=== PATIENT | female | born 1960 | race Caucasian/White ===

== ENCOUNTER 2016-11-11 16:08 | Emergency (ER) | payer OTHER ==
[~2016-11-11] VITALS: Ht 175.3 cm; Wt 85.0 kg
[~2016-11-11 16:08] MED LIST: ALBU18HF INH; BDS.4IN INH; HYDR25TA4 PO; LISI-571 PO; OMEP-113 PO
[2016-11-11 16:22] VITALS: BP 147/90; PULSE 90; RESP 18; O2SAT 96
[2016-11-11] MEDS ORDERED: 0.9% Sodium Chloride 1,000 ML IV ONE ×4 (16:36→20:10)
[2016-11-11] MEDS ORDERED: Ondansetron 2 mg/mL 2 mL Inj IVPUSH PRN (16:40)
[2016-11-11] MEDS ORDERED: Pantoprazole 4 mg/mL 10 mL Inj IVPUSH ONE (16:40)
[2016-11-11 16:42] LABS: BASOPHILS % (AUTO) 0.6 % (0-3); EOSINOPHILS % (AUTO) 5.1 % (0-5); MONOCYTES % (AUTO) 12.6 % (4-12); Mean Corpuscular Hemoglobin 34.5 pg (27.0-35.0); Mean Corpuscular Volume 96.4 fL (81-100); NEUTROPHILS % (AUTO) 59.6 % (40-74); Platelet Count 232 bil/L (150-400)
[2016-11-11] MEDS: HYDROmorphone 1 mg/mL Inj IVPUSH PRN ×2 (16:55→17:24)
[2016-11-11 17:02] LABS: Magnesium 1.9 mg/dL (1.6-2.6)
--- NOTE | 2016-11-11 18:07 | ED.REPORT ---
HPI-Abd Pain F 40 and Over Date of Service Nov 11, 2016 ED Provider: Greg Riley DO Pt is a 56 year old female with a history of HTN and asthma who presents to the ED complaining of constant and worsening LUQ abdominal pain onset this morning. She denies nausea, vomiting, and diarrhea. The pain is exacerbated by standing up straight, laughing, deep breathing, and bending over. Nursing Notes Stated Complaint: ABDOMINAL PAIN Chief Complaint: Female Abdominal Pain Nursing Notes Reviewed: Yes Allergies: Coded Allergies: Tetracycline (Verified Allergy, Severe, 06/19/10) Sulfa (Sulfonamide Antibiotics) (Verified Allergy, Unknown, RASH, ITCHING , SOB, 02/18/14) morphine (Verified Adverse Reaction, Severe, nausea, vomitting, 02/18/14) sulfamethoxazole (Verified Adverse Reaction, Intermediate, Welts, rash, ) trimethoprim (Verified Adverse Reaction, Intermediate, Welts, rash, ) Scheduled Budesonide (Pulmicort Flexhaler) 60 Puff/Inh Inhaler 2 PUFF INH HS Hydrochlorothiazide (Hydrochlorothiazide) 25 Mg Tablet 25 MG PO DAILY Lisinopril (Lisinopril) 5 Mg Tablet 5 MG PO DAILY Omeprazole Magnesium (Omeprazole) 20 Mg Capsule.dr 20 MG PO DAILY Scheduled PRN Albuterol Sulfate (Ventolin HFA Inhaler) 200 Puff/18 Gm Inhaler 1 PUFF INH Q4 PRN PRN For Wheezing General Time Seen by MD: 18:06 Chief Complaint Abdominal pain Hx Obtained From: Patient Arrived By: Walk-in Sudden in Onset?: No Onset Occurred: 5 - 8 hours ago Symptom Duration: Since onset Location: : LUQ Quality: Painful Severity: Current: Moderate Severity: Maximum: Moderate Recent Healthcare: No recent doctor visit, No recent hospitalization Similar Sx Previous: No Past Medical History Past Medical History Reports: Asthma, Cancer, Hypertension, Denies: Congestive heart failure, Diabetes mellitus Past Surgical History Right shoulder surgery Bilateral eye surgery for cancer Smoking History Former Smoker Social History Alcohol Use: "Social" Drug Use: Denies drug use Other Social History: Good social support Ambulatory Status Independent Review of Systems GI: Reports: Abdominal pain, Denies: Diarrhea, Nausea, Vomiting Complete sys rev & neg: except as marked. Physical Exam Vital Signs Vital Signs (First) Date Time Temp Pulse Resp B/P Pulse Ox O2 Delivery O2 Flow Rate FiO2 11/11/16 16:22 37.1 90 18 147/90 96 Room Air Initial VS: Reviewed Head / Eyes: Atraumatic, Normocephalic Neck: Supple, Full range of motion Extremities: Vascular intact, Neuro intact Skin: Warm, Dry, No cyanosis Neurologic: Alert, Oriented, Nonfocal Psychiatric: Mood/affect normal, Behavior normal General/Constitutional: Awake, Alert, Cooperative Respiratory / Chest: Atraumatic, Breath sounds NL, Breath sounds = bilat Cardiovascular: Heart rate NL, Regular rhythm, Heart sounds NL Abdomen: Atraumatic Bowel Sounds / Distention: Positive: Bowel sounds hyperactive Abdomen is distended. Diffusely tender abdomen, greatest on the left side. Back: Atraumatic, Full range of motion Interpretation & Diagnostics Lab Results Interpretation Result Diagram: 11/11/16 1630 11/11/16 1630 Test 11/11/16 16:30 11/11/16 17:02 11/11/16 18:40 White Blood Count 9.1th/mm3 (3.8-10.1) Red Blood Count 4.49mil/mm3 (3.90-5.20) Hemoglobin 15.5g/dL (12.0-15.6) Hematocrit 43.3% (35.0-46.0) Mean Corpuscular Volume 96.4fL (81-100) Mean Corpuscular Hemoglobin 34.5pg (27.0-35.0) Mean Corpuscular Hemoglobin Concent 35.8% (32.0-37.0) Red Cell Distribution Width 12.8% (12.3-15.4) Platelet Count 232bil/L (150-400) Neutrophils (%) (Auto) 59.6% (40-74) Lymphocytes (%) (Auto) 21.9% (14-46) Monocytes (%) (Auto) 12.6% (4-12) Eosinophils (%) (Auto) 5.1% (0-5) Basophils (%) (Auto) 0.6% (0-3) Sodium Level 138mEq/L (134-144) Potassium Level 3.8mEq/L (3.5-5.2) Chloride Level 97mEq/L (97-108) Carbon Dioxide Level 23mmol/L (18-29) Blood Urea Nitrogen 11mg/dL (6-24) Creatinine 0.46mg/dL (0.57-1.00) Estimat Glomerular Filtration Rate 202mL/min (>59) Glucose Level 113mg/dL (60-99) Calcium Level 10.2mg/dL (8.5-10.1) Magnesium Level 1.9mg/dL (1.6-2.6) Total Bilirubin 0.4mg/dL (0.0-1.2) Aspartate Amino Transf (AST/SGOT) 32U/L (0-50) Alanine Aminotransferase (ALT/SGPT) 25U/L (0-32) Alkaline Phosphatase 88U/L (25-150) Troponin T < 0.010ug/L (0.0-0.011) Total Protein 7.9g/dL (6.4-8.4) Albumin 4.3g/dL (3.4-5.0) Lipase 23U/L (13-60) Lactic Acid Level 0.8mmol/L (0.4-2.0) Urine Color Yellow (YELLOW) Urine Appearance Hazy (CLEAR,HAZY) Urine pH 6.0 (5.0-8.0) Urine Specific [place] 1.005 (1.003-1.035) Urine Protein Negativemg/dL (NEG,TRACE) Urine Glucose (UA) Negativemg/dL (NEGATIVE) Urine Ketones Negativemg/dL (NEGATIVE) Urine Occult Blood Trace (NEGATIVE) Urine Nitrite Negative (NEGATIVE) Urine Bilirubin Negative (NEGATIVE) Urine Urobilinogen Normalmg/dL (NORMAL) Urine Leukocyte Esterase Small (NEGATIVE) Urine RBC 0-2/hpf (0-2) Urine WBC 11-50/hpf (0-5) Urine Epithelial Cells Moderate/hpf (NONE-MOD) Urine Crystals None seen (NONE SEEN) Urine Bacteria Few/hpf (NONE-FEW) Urine Hyaline Casts None/lpf (NONE) Urine Granular Casts None seen (NONE SEEN) Urine Waxy Casts None seen (NONE SEEN) Urine Red Blood Cell Casts None seen (NONE SEEN) Urine White Blood Cell Casts None seen (NONE SEEN) Urine Mucus None seen (None Seen) Urine Trichomonas None seen (NONE SEEN) Urine Yeast None (NONE SEEN) Urinalysis Comment None Urine Culture Reflexed Indicated ECG Interpretation ECG Interpretation: Sinus rhythm with a rate of 79. Time: 18:36 Interpreted by: ED physician CT Abd / Pelvis Interpretation IMPRESSION: 1. No acute intra-abdominal findings. Normal appendix. No findings to explain left upper quadrant pain. Dictated by: Colette Bob M.D. on 11/11/2016 at 17:57 Study type: Abdominal CT IV contrast Interpretation / Wet Read by: Interpret - Radiologist Re-Eval/Medical Decision Med Decision/Clinical Course Tati looked and felt much better. Hydration and analgesia administered. CT scan is reassuring. Laboratory work is reassuring. The cause of her pain is uncertain but there does not appear to be an acute surgical emergency. Myocardial infarction unlikely. She feels ready to be discharged home. We will have next day follow-up. Routine opiate warnings given. Source of Hx: Old records Re-Evaluation/Progress : Time of Eval: 18:10 )( Re-Eval Abdomen: Soft Re-Evaluation/Progress Note: Pt rechecked. Informed pt of plan for discharge. Pt understands and agrees with plan for discharge. F/U instructions and RTER warnings given. All questions addressed. Counseled Regarding: Diagnosis, Lab results, Need for follow-up, When/why to return to ED Discharge & Departure Primary Impression: Abdominal pain Abdominal location: left upper quadrant Qualified Code: R10.12 - Left upper quadrant pain Disposition: Home Discharge Condition All VS Reviewed: Yes Condition: Stable Patient Instructions: Acute Abdominal Pain (ED) Additional Instructions: The cause of your pain is uncertain. You are very tender in the left upper quadrant so perhaps you injured your abdominal wall. The abdominal distention could be a precursor to diarrhea. The CAT scan was normal. The laboratory work was reassuring. Take 1-2 Lohn every 6 hours as needed for pain. Do not drive tonight. Do not drive or drink alcohol consume acetaminophen while taking the Lohn. Take 1 Zofran every 8 hours as needed for nausea. Clear liquid diet tonight. If you develop any chest pain or any worsening symptoms to come back to emergency department. It would not surprise me one bit if you developed diarrhea. Either way call your doctor tomorrow morning to set up follow-up. Referrals: Cody Nogueira MD (PCP) Scribe Attestation Portions of this note were transcribed by Malou Alonzo. I, Dr. Garza personally performed the history, physical exam and medical decision-making; I reviewed and confirmed the accuracy of the information in the transcribed note. Signed by: Amanda Samuels, 11/11/16 and 18:50. copies to: Cody Nogueira MD, Todd P DO Nov 11, 2016 18:07 Malou Fregoso Nov 11, 2016 18:29
--- NOTE | 2016-11-11 18:11 | DRSVH ---
PROCEDURE: CT ABDOMEN AND PELVIS WITH CONTRAST ([id number]) INDICATIONS: left abdominal tenderness TECHNIQUE: After the administration of intravenous contrast, 5 mm thick sections acquired from the diaphragm to the symphysis. 5 mm coronal and sagittal reformats were acquired. For radiation dose reduction, the following was used: automated exposure control, adjustment of mA and/or kV according to patient siz e. COMPARISON: None. FINDINGS: Image quality: Excellent. ABDOMEN: Lung bases: Lung bases are clear. Heart size is normal. Solid organs: Liver and spleen are normal in size and enhancement. Gallbladder is unremarkable. Bi liary system is non dilated. Pancreas enhances normally. No adrenal nodules. Kidneys demonstrate n ormal size and enhancement, without hydronephrosis. Peritoneum and bowel: Bowel loops demonstrate normal wall thickness and caliber. The appendix is thi n walled and gas filled. No free fluid or air. Nodes and vessels: No retroperitoneal or mesenteric adenopathy by size criteria. Aorta and inferior vena cava are normal in size. There are scattered atheromatous calcifications throughout the aorta and iliac arteries bilaterally. Miscellaneous: There is a small fat containing umbilical hernia. PELVIS: Genitourinary: Bladder wall thickness is normal. Uterus and ovaries are grossly unremarkable. Miscellaneous: No inguinal hernias or adenopathy. Bones: No suspicious bony lesions. No vertebral body compression fractures. IMPRESSION: 1. No acute intra-abdominal findings. Normal appendix. No findings to explain left upper quadrant pain. Dictated by: Colette Bob M.D. on 11/11/2016 at 17:57 Approved by: Colette Bob M.D. on 11/11/2016 at 18:09
[2016-11-11] MEDS ORDERED: HYDROmorphone 1 mg/mL Inj IVPUSH ONE (18:30)
[2016-11-11 19:20] LABS: APPEARANCE,URINE HAZY (CLEAR,HAZY); COLOR,URINE YELLOW (YELLOW); OCCULT BLOOD,URINE TRACE (NEGATIVE)
[2016-11-11 19:21] LABS: UROBILINOGEN,URINE NORMAL (NORMAL)
[2016-11-11] MEDS ORDERED: _HYDROcodone/APAP 5-325 mg Tablet PO PRN (20:35)
[2016-11-11] MEDS ORDERED: _Ondansetron ODT 4 mg Tablet PO PRN (20:35)
[2016-11-11 23:47] VITALS: BP 126/68; PULSE 84; RESP 16; O2SAT 96
== END 2016-11-11 23:49 | disposition home or self-care (01) ==
LOC: SED 16:08
DX: R10.12 Left upper quadrant pain (principal); I10 Essential (primary) hypertension; J45.909 Unspecified asthma, uncomplicated; Z87.891 Personal history of nicotine dependence; Z88.1 Allergy status to other antibiotic agents; Z88.2 Allergy status to sulfonamides; Z88.5 Allergy status to narcotic agent
CPT/HCPCS: 36415; 74177; 80053; 81000; 83605; 83690; 83735; 84484; 85025; 87086; 87088; 93005; 96361; 96374; 96375; 96376; 99285; J1170; J2405; J7030; Q9967